=== PATIENT | female | born 1945 | race Caucasian/White ===

== ENCOUNTER → 2017-10-02 13:27 | Outpatient (CLI) | payer MEDICARE, OTHER, SELFPAY ==
--- NOTE | 2017-10-02 | DI.MRI.S_ITS ---
PROCEDURE: MR KNEE RT WO CON INDICATIONS: RIGHT KNEE PAIN TECHNIQUE: Noncontrast sagittal PD fast spin echo and T2 fast spin echo with fat saturation, sagittal 3-D FLASH with fat saturation; coronal T1 spin echo and PD fast spin echo with fat saturation, and axial PD fast spin echo with fat saturation through the knee. COMPARISON: None. FINDINGS: Image quality: Excellent. Menisci: The the medial meniscus demonstrates a vague linear oblique high T2 signal intensity traversing its posterior horn, demonstrate inferior to the service extension. Paravertebral cyst is present posteriorly. There is lateral extrusion of the lateral meniscus, which is severely fragmented involving its anterior and posterior horns. Cruciate ligaments: The anterior and posterior cruciate ligaments appear intact. Medial structures: The medial collateral ligament appears intact. The posterior oblique ligament, semimembranosus tendon insertions, oblique popliteal ligament, and meniscocapsular junction appear intact. Visualized portions of the pes anserinus tendons appear normal. No abnormal bursal fluid. Lateral structures: The lateral collateral ligament, long and short heads of the biceps femoris tendon appear intact. The popliteus tendon appears normal; the popliteofibular ligament appears intact. The posterosuperior and anteroinferior popliteomeniscal fascicles appear intact. The arcuate and fabellofibular ligaments appear intact, on either side of the lateral inferior geniculate artery. Iliotibial band appears normal. Anterior structures: The quadriceps and patellar tendons appear intact. Patellar alignment is normal. No femoral trochlear dysplasia or ventral trochlear prominence. No edema in the infrapatellar fat pad. Bones and cartilage: There is severe tricompartmental periarticular osteophyte formation. Multiple intraosseous ganglia within the posterior aspect of the medial tibial plateau are present, with mild surrounding degenerative marrow edema. Scattered small intraosseous ganglia within the subchondral aspects of the lateral femoral condyle and lateral tibial plateau are present. There is mild diffuse articular cartilage loss overlying the weightbearing aspects of the medial femoral condyle and medial tibial plateau. Severe diffuse articular cartilage loss overlying the weightbearing aspects of the lateral femoral condyle and lateral tibial plateau. Severe articular cartilage loss overlies the medial aspect of the medial patellar facet. Moderate articular cartilage loss overlies the lateral patellar facet. Joint space: There is a moderate knee joint effusion and a trace Guajardo's cyst. There are multiple intra-articular loose bodies present, largest of which is in the lateral aspect of the suprapatellar recess measuring 12 mm. Normal appearing synovial plicae are incidentally noted. IMPRESSION: 1. Medial and lateral meniscal tearing. 2. Severe osteoarthritis with tricompartmental articular cartilage loss. 3. Knee joint effusion and multiple intra-articular loose bodies. Dictated by: Patricia Bowman M.D. on 10/02/2017 at 13:30 Approved by: Patricia Bowman M.D. on 10/02/2017 at 13:33
== END ==
PROVIDERS: Visit Provider Orthopaedic Surgery
DX: S83.281A Other tear of lateral meniscus, current injury, right knee, initial encounter (principal); S83.241A Other tear of medial meniscus, current injury, right knee, initial encounter; M25.561 Pain in right knee; M17.11 Unilateral primary osteoarthritis, right knee; M25.461 Effusion, right knee
CPT/HCPCS: 73721

== ENCOUNTER 2017-11-14 06:05 | Day surgery (SDC) | payer MEDICARE, OTHER, SELFPAY ==
[2017-10-28 09:54] VITALS: BMI 37.0
[2017-10-28 11:02] VITALS: BMI 36.0
[2017-11-14] VITALS (15 sets, daily range): BP systolic 127–168; BP diastolic 76–96; PULSE 56–80; RESP 10–21; TEMP 36–36.9; O2SAT 93–98; BMI 35.5
--- NOTE | 2017-11-14 06:00 | DI.RAD.S_ITS ---
PROCEDURE: XR KNEE RT 1TO2V INDICATIONS: post operative total right knee TECHNIQUE: 2 view(s) of the knee acquired. COMPARISON: None. FINDINGS: Bones: Patient is status post knee joint arthroplasty. Hardware components are in expected positions. Visualized bony structures are intact. Soft tissues: Overlying postoperative changes are noted. IMPRESSION: Expected postoperative appearance Dictated by: Narendra Roberts M.D. on 11/14/2017 at 10:37 Approved by: Narendra Roberts M.D. on 11/14/2017 at 10:38
[2017-11-14] MEDS: LACTATED RINGERS 1,000 ML 42 ML IV ×2 (07:02→09:34)
[2017-11-14] MEDS: PREGABALIN 75 MG CAPSULE PO (07:04)
[2017-11-14] MEDS: ACETAMINOPHEN 325 MG TABLET 975 MG PO ×2 (07:04→14:30)
[2017-11-14] MEDS: MELOXICAM 7.5 MG TABLET 15 MG PO (07:04)
--- NOTE | 2017-11-14 07:48 | PM.PREOP ---
Pre-operative Note Interval Note Pre-op Check: Yes History & Physical Reviewed by Physician and Yes Exam Performed Changes: No
[2017-11-14] MEDS: MIDAZOLAM 2 MG/2 ML VIAL IV (07:55)
--- NOTE | 2017-11-14 07:59 | P.OP_ITS ---
Operative Date/Time/Diagnoses Date of procedure: 11/14/17 Time of procedure: 09:31 Pre-op diagnosis: Right knee osteoarthritis Post-op diagnosis: same Procedure & Clinicians Procedure: Right total knee arthroplasty Same procedure as scheduled: Yes Indications: The patient presents today for total knee arthroplasty after failure of conservative treatment. The nature of the procedure including the risks and benefits, alternatives, postoperative course and expected outcome were discussed and all questions answered. Consent was obtained. Operative site confirmed and marked. Surgeon: Manpreet Coles Airplane Pilot Photogrammetry: Vivek Miller Anesthesia Type: General and Local Operative Notes Findings: Severe osteoarthritis with valgus alignment. Closure Type: primary Specimen(s): none sent Implants & Drains: [employer] BCS: 6 femoral component, 5 tibial component, 9 mm BCS polyethylene tray and 32 mm x 7.5 mm round patella Applied: implant(s) Estimated Blood Loss (mL): 75 Blood products transfused: none Tourniquet time (min): 17 Procedure in detail: The patient was taken to the operative suite and placed under general anesthesia. The patient was given prophylactic antibiotics prior to surgery. The patient was also given tranexamic acid, 1 g, just prior to surgery for postoperative hemostasis. [The lateral knee was prepped and the joint injected with 20 mL of 1% Lidocaine with epinephrine. ] The knee was then prepped and draped in usual sterile fashion. The leg was exsanguinated with an Esmarch dressing and the tourniquet raised to [250] torr. A 15 cm anterior incision was made. Next a medial trivector arthrotomy was made. The extensor mechanism was marked to ensure accurate repair. Initial exposing dissection was carried out medially and laterally. The knee was then extended and the patellar thickness was measured and a cut made removing approximately 7 mm of bone[ with a goal of restoring normal patellar thickness] . The patella was then sized and drilled. Some excess lateral bone was excised and the patellofemoral ligament released. The tourniquet was then released. The knee was then flexed and the [employer] femoral guide was placed. The anterior pins were placed and the distal rotation holes drilled. The distal cutting guide was placed and the templated distal femoral cut was made. The templating cutting block was then placed and the anterior, posterior and chamfer cuts made. The [employer] tibial guide was placed and the alignment checked along the axis of the proximal tibial with a tanisha. The proximal tibial cut was then made with an oscillating saw. All meniscus and bony debris was then removed. Flexion extension gaps were checked. The knee was tight laterally, especially in extension, as expected. A lateral release was performed using a 15 blade with a pie crust technique. This better equalize the gaps with just slight increase in medial laxity likely due to stretching of the MCL. The soft tissues were then injected with a combination of [20 mL of half percent Marcaine with epinephrine and 20 mL of Exparel]. The trial components were then placed. The knee went into full extension and flexion beyond 120?. There was good medial- lateral balance throughout motion with just a slight increase in medial laxity compared to lateral. Patellar tracking was [excellent]. The trial components were removed and size is confirmed for the final implants. The knee was then exsanguinated with an Esmarch dressing and the tourniquet reapplied for cementing. The knee was cleansed with Pulsavac irrigation and dried. The final components were cemented in with high viscosity vacuum mixed bone cement with antibiotics. The knee was held in extension and the patellar clamp until the cement had adequately cured. The knee was then irrigated with dilute Betadine solution. The extensor mechanism was closed with 5 interrupted #1 Vicryl sutures in 90 degrees of flexion. [The joint was then injected with a combination of 1 g of tranexamic acid and 20 mL of quarter percent Marcaine with epinephrine.] The subcutaneous tissue was closed with 2-0 Vicryl. The skin was closed with [ feroz and surgical adhesive]. [ An Aquacell] dressing and Julio wrap were then applied. Condition: stable Disposition: PACU Plan for aftercare: [facility] postoperative protocol for total knee arthroplasty.
[2017-11-14] MEDS: CEFAZOLIN 2 GM/100 ML FROZ.PIGGY IV ×2 (08:05→16:55)
[2017-11-14] MEDS: LIDOCAINE 1% W/EPI INJ 20 ML INJ (08:20)
--- NOTE | 2017-11-14 08:34 | SUR.OPER ---
Supine on padded OR bed. Pillow under head, arms secured on padded armboards <90 degree abduction. Safety belt across torso. Non-operative leg secured with tape over blanket over lower leg. Operative leg secured in [place] positioner. Foam padded brace at thigh of operative leg.
[2017-11-14] MEDS: BUPIVACAINE 0.5% W/ EPI (PF) 20 ML, BUPIVACAINE LIPOSOME 266 MG, SODIUM CHLORIDE 0.9% 8... INJ (08:45)
[2017-11-14] MEDS: BUPIVACAINE 0.5% W/ EPI (PF) 10 ML, TRANEXAMIC ACID 1,000 MG, SODIUM CHLORIDE 0.9% 20 ML INJ (08:46)
[2017-11-14] MEDS: POVIDONE-IODINE 15 ML, SODIUM CHLORIDE 0.9% 250 ML TOP (08:48)
[2017-11-14] MEDS: fentaNYL 100 MCG/2 ML INJ 50 MCG IV ×3 (09:50→10:10)
[2017-11-14] MEDS: ONDANSETRON 4 MG/2 ML INJ IV (10:53)
[2017-11-14] MEDS: LACTATED RINGERS 1,000 ML 125 ML IV (11:21)
[2017-11-14] MEDS: HYDROMORPHONE 0.5 MG INJ IV (11:22)
--- NOTE | 2017-11-14 11:27 | PC.NURSE ---
Addendum entered by Angeline Cabral R.N. 11/14/17 14:17: PAIN/ - states earlier 5mg oxycodone and the 0.5mg dilaudid provided good relief r knee pain, pt placed on bedpan and voided 550ml clear urine. Original Note: Addendum entered by Angeline Cabral R.N. 11/14/17 13:45: PAIN - pt asking medication, pain 4 on scale 0/10, some incr restlessness, ice packs provided, given 0.5mg iv dilaudid and after pt darby full liq, crackers, given 5mg oxycodone. Original Note: POST OP ARRIVAL 1030: Awake,talkative,sipping apple juice, denies nausea, states r knee pain 6 on scale 0/10 and moderately restless with discomfort, bert wrap over aquacell dsg cdi, ice pack placed behind and over r knee, ra 94%, p68, scds applied, +cms feet and wiggles toes, ankle pumps, req pain medication, given 0.5mg iv dilaudid now, call light available, oriented to room.
[2017-11-14] MEDS: OXYCODONE IR 5 MG TABLET PO ×2 (12:56→16:41)
[2017-11-14] MEDS: HYDROMORPHONE 1 MG INJ 0.5 MG IV (12:57)
--- NOTE | 2017-11-14 14:15 | PT.IIE ---
Current Diagnoses Unilateral primary osteoarthritis, right knee (11/14/17) Surgery Performed Operation Date: 11/14/17 07:45 Actual Procedures p Total Knee Arthroplasty(Right) - Manpreet Coles MD Surgical History (Last Updated 10/28/17 @ 11:48 by Ivone Domínguez, RN) History of bunionectomy (Acute) History of tonsillectomy (Acute) History of vaginal surgery (Acute) S/P breast biopsy, bilateral (Acute) Medical History (Last Updated 10/28/17 @ 11:48 by Ivone Domínguez, RN) Bladder stone (Acute) Borderline hypertension (Acute) Concussion (Acute 09/12/17) Degenerative arthritis of right knee (Acute) Low back pain (Acute) Neck pain (Acute 09/12/17) Plantar fasciitis (Acute) Primary osteoarthritis of right knee (Acute) Surgery, elective (Acute) Physical Therapy Inpatient Evaluation/Re-Eval M1 PT/OT-IP Prior Functional Status Start: 11/14/17 16:57 Freq: NEEDED Status: Active Protocol: Document 11/14/17 14:15 AB (Rec: 11/14/17 17:11 AB [id number]) Medical Review Prior Functional Status Medical History Reviewed Yes Communication able to make needs known Mobility and Gait stated that she is independent with all mobilities and ambulation without AD Social History Household Members spouse Living Arrangements House Number of Floors (Floors) One Floor Number of Stairs To Enter/Railing? has 3 steps to enter with L rail ascending Home Environment Walk in Shower Home Equipment Front Wheel Walker Raised Toilet Seat w/Armrests Shower Seat with Backrest Grab Bars In Shower Additional Social History Comment pt has a hurrycane M2 PT-IP Current Condition Start: 11/14/17 16:57 Freq: NEEDED Status: Active Protocol: Document 11/14/17 14:15 AB (Rec: 11/14/17 17:11 AB [id number]) Physical Therapy Current Condition Current Condition Evaluation Date 11/14/17 Treatment Diagnosis s/p R TKA Onset Date 11/14/17 Weight Bearing Status Weight Bearing Status Weight Bear as Tolerated M3 PT-IP Subjective Start: 11/14/17 16:57 Freq: NEEDED Status: Active Protocol: Document 11/14/17 14:15 AB (Rec: 11/14/17 17:11 AB [id number]) Subjective Physical Therapy Visit Type Type Initial Evaluation Visit Start Time 14:15 Visit Stop Time 15:47 Total Visit Minutes 92 Number of COMPUTER GRAPHICS ILLUSTRATOR Visits 0 Physical Therapy Visit Comments Patient Comments i want to go home today Therapy Pain Assessment Pain When Pain Assessed At Rest Pain Present Pain Present Pain Reported Location Right Knee Intensity 1 Scale Used Numeric (1 - 10) Pain Management Techniques Timing of Activity with Medications M4 PT-IP Mobility and Gait Start: 11/14/17 16:57 Freq: NEEDED Status: Active Protocol: Document 11/14/17 14:15 AB (Rec: 11/14/17 17:11 AB [id number]) PT-Bed Mobility Assessment Supine to Sit Supine to Sit Standby Assistance Sit to Supine Sit to Supine Standby Assistance Scooting Scooting to Edge of Bed Standby Assistance PT-Transfer Assessment Sit to and From Stand Sit to and from Stand Contact Guard Assistance 1 Person Assistance Use of Upper Extremities Equipment Transfer Assistive Device Gait Belt Front Wheeled Walker Orthotic/Prosthetic Devices or Brace: No Transfers Transfer Destination Chair Transfer Technique Stand Step Pivot Transfer Ability Level of Assist Contact Guard Assistance 1 Person Assistance Use of Upper Extremities Comments Mobility Comments caregiver training conducted. spouse educated on how to use safety belt on and how to assist pt. spouse was able to assist pt with bed mobility, transfers and ambulation. Gait Assessment Gait Gait Assistance Required: Contact Guard Assist Distance (Feet) (feet) 100 Able to Maintain Weight Bearing Status Yes During Gait Assistive Devices Assistive Device Gait Belt Front Wheeled Walker Orthotic/Prosthetic Devices or Brace: No Gait Deviations General Gait Pattern Antalgic Decreased Stride Length Decreased Feet Clearance Narrow Based Gait Factors Limiting Gait Function Factors Limiting Gait Function Decreased Activity Tolerance Decreased Strength Limited Range of Motion Pain Poor Balance Poor Safety Awareness Comments Gait Comments pt with c/o dizziness and nausea with upright activities . BP checked: 145/91 BP after tx session: 168/99 Nurse informed Stair Climbing Assessment Evaluation Level of Assist On Stairs Contact Guard Assistance 1 Person Assistance Devices Stair Climbing Assistive Devices Left Railing Technique/Endurance Stair Climbing Direction Ascend and Descend Stair Climbing Technique Step to Step Number of Steps Climbed 3 Query Text: Stair Climbing Set # Repetitions (reps) 2 Comments Stair Climbing Comments pt requires cues for proper techniques. spouse was able to provide appropriate cues to pt. PT-Balance Assessment Sitting Balance and Reactions Static Sitting Balance Ability Good Dynamic Sitting Balance Ability Good Standing Balance and Reactions Static Standing Balance Ability Fair Dynamic Standing Balance Ability Fair Device Used FWW M5 PT-IP Objective Assessments Start: 11/14/17 16:57 Freq: NEEDED Status: Active Protocol: Document 11/14/17 14:15 AB (Rec: 11/14/17 17:11 AB [id number]) Orientation Orientation/Cognition Level of Alertness Alert Orientation Name Age Birthday Month Date Year Day of Week Place Situation Safety Awareness Decreased Safety Awareness Comments pt alert but with some difficulty with instruction and stated that it is because of the pain meds. Gross Range of Motion Lower Extremity ROM Assessment Right Impaired Strength Lower Extremity Strength Assessment Right Impaired Knee 4-/5 M6 PT-IP Treatment Start: 11/14/17 16:57 Freq: NEEDED Status: Active Protocol: Document 11/14/17 14:15 AB (Rec: 11/14/17 17:11 AB [id number]) Physical Therapy Treatment Education Education Provided Precautions Weight Bearing Status Post-Op Packet Safety M7 PT-IP Assessment and Plan Start: 11/14/17 16:57 Freq: NEEDED Status: Active Protocol: Document 11/14/17 14:15 AB (Rec: 11/14/17 17:11 AB [id number]) PT Summary Assessment and Plan Potential Rehabilitation Potential Good Status of Condition at Evaluation Evolving Summary Impairments Pain ROM Strength Balance Coordination Sensation Tone Cognition Bed Mobility Transfers Gait Activity Tolerance Assessment Summary pt doing well with mobility and spouse was able to assist pt safety. pt with c/o dizziness and nausea with activity limiting movement but was able to complete tasks with spouse assisting her. pt may go home with spouse to assist and outpt PT. Goals Bed Mobility Goal Independent Transfer Goal Independent Gait Goal Independent Gait Distance 200 Other Goals up/down 3 steps with L rail ascending SBA Days to Meet Goals 2 Frequency of Treatment Frequency Of Treatment Twice a Day Treatment Plan Physical Therapy Treatment Plan Bed Mobility Training Transfer Training Gait Training Therapeutic Exercise Balance Retraining Post Op Education Discharge Planning Hot or Cold Pack Neuromuscular Re-ed Coordination Retraining Manual Therapy Recommendations To Nursing Amount of Assist Needed 1 Person Assist Discharge Recommendations PT Discharge Recommendations Home with Assistance Outpatient PT
--- NOTE | 2017-11-14 16:21 | CM.IDA ---
Discharge Planning/Care Management CM Discharge Assessment Start: 11/14/17 16:17 Freq: Status: Active Protocol: Document 11/14/17 16:18 EBEN (Rec: 11/14/17 16:21 EBEN [id number]) Discharge Planning Assessment Assigned Agriculture Manager OVI Beatty DPOA/Assigned Designee Name Jose Salamanca, spouse Contact Information [phone] Advance Directives? No Advance Directives on File No History Provided By Patient Prior Living Arrangements House Household Members spouse Type of transporation used prior to Drives own vehicle admit Independent with ADL's Yes Is patient alert and oriented? Yes Comment All needed are in place per pt . Barriers to Discharge No Comment Pt is a very pleasant woman who expects to DC home w/ assist from her spouse. Met w/ pt to explain role. Pt appreciative of the visit and expects no barriers to DC. PT pending. Discharge Plan Home Transportation Arrangement spouse Referrals Initiated None needed Whiteboard Updated in Patient Room with Yes name and ext. # of Agriculture Manager Review Status In Process
[2017-11-14] MEDS: ONDANSETRON 4 MG ODT PO (16:41)
--- NOTE | 2017-11-14 16:55 | PC.NURSE ---
1655 pt alert and requesting DC. Pt has worked with physical therapy since post op. Pt and spouse states feel comfortable with Post op precautions and activity at home. Per Emani from physical therapy pt is safe to DC home with spouse. Pt denies any nausea. states was shift path and has medications at home. Call by this RN to to relay the same and MD states will put in order for DC.
--- NOTE | 2017-11-14 18:22 | PC.NURSE ---
DISCHARGE Received pt in bed after PT eval. A&Ox3, pt very eager to be discharged home today. c/o minimal pain to R knee at rest, pain up to 4/10 with activity. aqaucel dressing with BALAJI wrap CDI. pt denies any numbness/tingling. c/o slight nausea, medicated with PRN zofran prior to dinner, tolerated regular diet without issues. d/c instructions reviewed with pt and spouse by vani SEGUNDO. pt d/c of funit at approximately 1820 via wheelchair with REMELT OPERATOR escort.
== END 2017-11-14 18:20 | disposition home or self-care (01) ==
LOC: AC 16:57 → OR 11-15 07:24
PROVIDERS: Visit Provider Orthopaedic Surgery
PROC: 0SRC0JZ Replacement of Right Knee Joint with Synthetic Substitute, Open Approach (ICD-10-PCS; CPT 27447; principal; 2017-11-14 07:45)
DX: M17.11 Unilateral primary osteoarthritis, right knee (principal)
CPT/HCPCS: 27447; 73560; 97116; 97162; 97530; C1776; C9290; J0690; J1100; J1170; J2250; J2405; J2704; J3010

== ENCOUNTER 2022-05-30 06:23 | Day surgery (SDC) | payer MEDICARE, SELFPAY ==
[2017-11-14 11:05] VITALS: BMI 35.5
[2022-05-15 12:31] VITALS: BMI 36.3
[2022-05-30] VITALS (16 sets, daily range): BP systolic 132–175; BP diastolic 66–96; PULSE 63–86; RESP 11–20; TEMP 35.7–36.8; O2SAT 93–98; BMI 36.3
--- NOTE | 2022-05-30 06:00 | DI.RAD.S_ITS ---
PROCEDURE: XR KNEE LT 1TO2V INDICATIONS: prosthesis placement TECHNIQUE: 2 views of the knee were acquired. COMPARISON: [facility], CR, XR KNEE 4+ VIEWS LEFT, 04/02/2022, 14:58. [facility], CR, XR KNEE RT 1TO2V, 11/14/2017, 9:52. FINDINGS: Bones: No fractures or dislocations. No suspicious bony lesions. Soft tissues: No joint effusion. No suspicious soft tissue calcifications. IMPRESSION: Expected postoperative appearance of the left knee arthroplasty. Dictated by: Singh Sorto M.D. on 05/30/2022 at 10:04 Approved by: Singh Sorto M.D. on 05/30/2022 at 10:05
[2022-05-30] MEDS: PREGABALIN 75 MG CAPSULE PO (07:00)
[2022-05-30] MEDS: ACETAMINOPHEN 325 MG TABLET 975 MG PO (07:00)
[2022-05-30] MEDS: LACTATED RINGERS 1,000 ML 42 ML IV ×2 (07:01→08:47)
[2022-05-30 07:39] LABS: COVID19 -Nasal RAPID Negative (Negative)
--- NOTE | 2022-05-30 07:47 | PM.PREOP ---
Pre-operative Note COVID-19 COVID-19 status: Negative Result date/Date tested (Pos, Neg/Pending): 05/30/22 Interval Note History & Physical reviewed/Exam performed by Physician: Yes Changes to H&P: No
[2022-05-30] MEDS: CEFAZOLIN 2 GM/100 ML PREMIX 100 ML IV ×2 (08:00→18:25)
[2022-05-30] MEDS: TRANEXAMIC ACID 1,000 MG VIAL 1000 MG INJ ×2 (08:00→09:00)
--- NOTE | 2022-05-30 08:16 | SUR.OPER ---
Supine on padded OR bed. Pillow under head, arms secured on padded armboards <90 degree abduction. Safety belt across torso. Non-operative leg secured with tape over blanket over lower leg. Operative leg secured in [place] positioner. Foam padded brace at thigh of operative leg.
[2022-05-30] MEDS: MORPHINE 4 MG/ML INJ INJ (08:21)
[2022-05-30] MEDS: BUPIVACAINE LIPOSOME 266 MG/20 ML VIAL INJ (08:21)
[2022-05-30] MEDS: BUPIVACAINE 0.25% (PF) 60 ML, EPINEPHrine 0.3 MG INJ (08:22)
--- NOTE | 2022-05-30 09:24 | P.OP_ITS ---
Operative Date/Time/Diagnoses Date of procedure: 05/30/22 Time of procedure: 09:24 Pre-op diagnosis: Left knee osteoarthritis Post-op diagnosis: same Procedure & Clinicians Procedure: Left total knee replacement Same procedure as scheduled: Yes Indications: The patient has had progressively worsening left knee pain with radiographic changes consistent with arthritis. Non-operative management has failed and the patient has requested total knee replacement. The risks, benefits and alternatives to surgery were discussed with the patient prior to proceeding. Risks discussed included, but were not limited to, failure to relieve pain, stiffness, infection, nerve damage, deep venous thrombosis, pulmonary embolism, stroke, coma, heart attack, permanent paralysis and , as well as the potential need for eventual revision of the prosthetic. Surgeon: Jean Carlos Hickey Paramedic: Sheyla Pineda Click Yes if Unassisted: No Anesthesia Type: General and Local Operative Notes Findings: Severe osteoarthritis predominantly in the lateral compartment with significant inflammatory findings in the synovium. Closure Type: primary Specimen(s): none sent Prosthetic devices, grafts, tissues, transplants, or devices: Implants used in this procedure were manufactured by the [employer] and [employer] and included the BCS II Journey total knee replacement with a size 6 cobalt chromium femur, a size 5 non porous tibial base plate, a 10 mm cross- linked polyethylene insert, and 32 mm oval Kiara II patella. Applied: implant(s) Estimated Blood Loss (mL): 25 Blood products transfused: none Tourniquet time (min): 46 Procedure in detail: The patient was seen in the pre-operative area, where the left knee was identified as the operative site and this was marked with my initials. The patient received pre-operative antibiotics, and was taken to the operating room and placed on the operative table in the supine position. After satisfactory anesthesia, a contemporary or modern dancer out was performed. The left leg was encircled with a tourniquet about the proximal thigh, and the leg was prepared from the toes to the tourniquet with ChloroPrep in the usual fashion and draped through sterile drapes. The leg was elevated and exsanguinated with Eschmark bandage and the tourniquet inflated to 250 mmHg pressure. The knee was approached through an approximately 18 cm incision centered over the patella and carried into the knee through a medial parapatellar arthrotomy. The anterior osteophytes and soft tissues were removed. The rotational landmarks of [place]'s line and the transepicondylar axis were marked on the femur with electrocautery, and intramedullary guide holes for the femur and tibia were created. The distal femoral cut was made in 6 degrees of valgus using the intramedullary guide at the primary cut setting. The proximal tibial cut was then made using the intramedullary guide, taking 7 mm of bone off the less involved medial side. The extension gap was checked and the rotation of the femoral component confirmed with the gap balancing blocks. The anterior, posterior and chamfer cuts were then made. The posterior osteophytes and soft tissues were then removed. The posterior capsule was injected with part of a mixture of 60 ml 0.25% Marcaine mixed with 20 ml Exparel and 4 mg of morphine for post-operative pain control. The remainder of this mixture was injected into the capsule and subcutaneous tissues during cement curing. The tibia was prepared with the rotation set by an extra medullary guide. Trial tibial and femoral components were then placed and the intercondylar notch cut through the femoral trial. Range of motion was 0-135 degrees, with good stability throughout the range. The patella was then cut to accommodate the patellar prosthetic. There was no need for a lateral release. The trials were then removed, and the femoral hole plugged with a bone plug. The bone was prepared with pulsatile lavage, and dried with a sponge. Cement was applied and the final prosthetics placed. Excess cement was removed during and after cement curing. After confirming there was no extruded cement posteriorly, the final tibial insert was placed. The knee was copiously irrigated and the tourniquet deflated. Hemostasis was obtained. The capsule was closed with interrupted # 2 polyester sutures. The subcutaneous layer was closed with 3-0 Vicryl, and the skin with a running 3-0 V-Lock suture and Dermabond. An Aquacel Ag dressing was applied and the patient was taken to recovery having tolerated the procedure well. A skilled operating room surgical technologist was necessary during this procedure to provide positioning, exposure, and retraction to protect vital structures. Without the assistance of Ms. Pineda, the procedure could not be completed in a safe, expedient fashion. Complications: none Post-operative Condition: stable Disposition: PACU Plan for aftercare: The patient will be maintained on a standard total knee replacement protocol with weight bearing as tolerated. The patient will receive aspirin and sequential compression devices for DVT prophylaxis. The patient will be discharged home when safe for the home environment.
[2022-05-30] MEDS: OXYCODONE IR 5 MG TABLET PO (09:59)
[2022-05-30] MEDS: ONDANSETRON 4 MG/2 ML INJ IV (09:59)
[2022-05-30] MEDS: LORazepam 2 MG/ML INJ 0.25 MG IV (10:09)
--- NOTE | 2022-05-30 11:34 | SUR.PHASEII ---
11:25, attempted to get patient up sitting on edge of ped. Dizzy, groggy, too much pain to move around. Pt requested to change the plan pf DC home now to going upstairs and wait a while to go home. Dr. Hickey updated by Charge Nurse and agreed to write orders for transfer. Pt not rating pain appropriately bc so groggy. Repositioned in bed, sipping water, Left knee elevated, ice pack applied. updated with new plan.
[2022-05-30] MEDS: OXYCODONE/ACETAMINOPHEN 5/325 TABLET 1 TAB PO (11:39)
[2022-05-30] MEDS: IBUPROFEN 600 MG TABLET PO (11:41)
[2022-05-30] MEDS: OXYCODONE IR 10 MG TABLET PO ×2 (12:57→23:13)
[2022-05-30] MEDS: IBUPROFEN 400 MG TABLET PO ×3 (12:58→21:34)
--- NOTE | 2022-05-30 14:00 | PC.NURSE ---
Pt to room 214 via bed from PACU. Pt is sleepy but oriented x 3. Pt oriented to room, call light, tv controls, and bed controls. Pt able to wiggle toes and move feet-denies numbness. SCD's on and running, IV infusing. Pt denies needs at this time and agrees to call for assistance as needed. Bed alarm is on for safety.
[2022-05-30] MEDS: ACETAMINOPHEN 325 MG TABLET 650 MG PO (18:23)
[2022-05-30] MEDS: LACTATED RINGERS 1,000 ML 100 ML IV (18:24)
[2022-05-30] MEDS: DOCUSATE 100 MG CAPSULE PO (21:34)
[2022-05-30] MEDS: ASPIRIN EC 81 MG TABLET PO (21:34)
[2022-05-31] MEDS: IBUPROFEN 400 MG TABLET PO ×4 (00:42→13:52)
[2022-05-31] MEDS: ACETAMINOPHEN 325 MG TABLET 650 MG PO ×3 (00:43→13:52)
[2022-05-31] MEDS: CEFAZOLIN 2 GM/100 ML PREMIX 100 ML IV (03:26)
[2022-05-31 04:00] VITALS: BP 129/76; PULSE 69; RESP 17; TEMP 36; O2SAT 95
[2022-05-31 06:15] LABS: Hematocrit 39.2 % (36-46)
--- NOTE | 2022-05-31 06:34 | PM.DS.1 ---
History of Present Illness History of Present Illness Date Patient Seen: 05/31/22 Time Patient Seen: 06:34 Chief complaint: TKA Left *OPB* Narrative: Operative Date/Time/Diagnoses Date of procedure: 05/30/22 Time of procedure: 09:24 Pre-op diagnosis: Left knee osteoarthritis Post-op diagnosis: same Procedure & Clinicians Procedure: Left total knee replacement Same procedure as scheduled: Yes Indications: The patient has had progressively worsening left knee pain with radiographic changes consistent with arthritis. Non-operative management has failed and the patient has requested total knee replacement. The risks, benefits and alternatives to surgery were discussed with the patient prior to proceeding. Risks discussed included, but were not limited to, failure to relieve pain, stiffness, infection, nerve damage, deep venous thrombosis, pulmonary embolism, stroke, coma, heart attack, permanent paralysis and , as well as the potential need for eventual revision of the prosthetic. Surgeon: Jean Carlos Hickey Systems Development Consultant: Sheyla Pineda Click Yes if Unassisted: No Anesthesia Type: General and Local Operative Notes Findings: Severe osteoarthritis predominantly in the lateral compartment with significant inflammatory findings in the synovium. Closure Type: primary Specimen(s): none sent Prosthetic devices, grafts, tissues, transplants, or devices: Implants used in this procedure were manufactured by the [employer] and included the BCS II Journey total knee replacement with a size 6 cobalt chromium femur, a size 5 non porous tibial base plate, a 10 mm cross-linked polyethylene insert, and 32 mm oval Kiara II patella. Applied: implant(s) Estimated Blood Loss (mL): 25 Blood products transfused: none Tourniquet time (min): 46 Discharge Providers Provider Discharge Date: 05/31/22 Consults: 05/30/22 12:19 Consult to Discharge Planning Routine Comment: Consult to Physical Therapy Evaluate & Treat Comment: Physician Instructions: postop TKA protocol Discharge provider: Asia Meredith PA-C Summary Hospital Course Discharge Diagnosis: Left knee osteoarthritis, s/p left total knee arthroplasty Hospital Course: Ms Salamanca's hospital course was remarkable for poor pain control. On POD# 1 she c/o being up all night and very much wanted to go home so she could get some rest. She had been OOB several times to the bathroom and was voiding without difficulty. She had not yet worked w/ PT. She denied N/V. Exam Vital Signs (past 8 hours): - 05/30/22 23:56 05/31/22 04:00 Temperature 97.4 F L 96.8 F L Pulse Rate 68 69 Respiratory Rate 18 17 Blood Pressure 135/77 129/76 Pulse Oximetry 93 95 Oxygen Flow Rate 0 0 Oxygen Delivery Method Room Air Oxygen Flow Rate 0 Narrative Exam Narrative: 5/5 strength in hip flexors, DF, PF, EHL; 4/5 quadriceps, hamstrings on left. Sensation to light touch intact throughout LLE. Calves soft, compressible, nontender and without palpable cords or masses. Aquacel dressing CDI. Objective Labs 05/31/22 05:45 Labs: Laboratory Results - last 24 hr 05/30/22 05/31/22 07:00 05:45 Hgb 13.0 Hct 39.2 SARS-CoV-2 (PCR) Negative [facility] Medical History (Updated 05/15/22 @ 13:30 by Camelia Beltre RN) Bladder stone Borderline hypertension Concussion (09/12/17) COVID-19 virus infection (02/2020) Degenerative arthritis of right knee Low back pain Neck pain (09/12/17) Plantar fasciitis Primary osteoarthritis of right knee Surgery, elective Surgical History (Updated 05/15/22 @ 12:32 by Camelia Beltre, SANYA) History of bunionectomy History of tonsillectomy History of total right knee replacement (11/14/17) History of vaginal surgery S/P breast biopsy, bilateral Social History household members: spouse Smoking Status: Never smoker alcohol intake: former Discharge Assessment & Plan Assessment and Plan Assessment: Left knee osteoarthritis, s/p left total knee arthroplasty Plan of Treatment: Home after PT if PT agrees. Multimodal pain control, ASA BID x 6 weeks for VTE prophylaxis, outpt PT, f/u in office in 2 weeks. Discharge Plan Discharge Plan Patient Disposition: Home Discharge orders & Medications Discharge Orders: Discharge (Order); Ordered 05/31/22 Ordered By: Asia Meredith Prescriptions: New acetaminophen 325 mg Tablet 650 mg PO Q6H PRN (Reason: Fever/Mild Pain (1-3)) Qty: 500 0RF aspirin 81 mg Tablet,Delayed Release (Dr/Ec) 81 mg PO BID Qty: 84 0RF ibuprofen 600 mg Tablet 600 mg PO Q6HR PRN (Reason: Fever/Mild Pain (1-3)) Qty: 500 0RF oxycodone 5 mg Tablet 5 mg PO Q4HR PRN (Reason: Pain, Moderate (4-6)) Qty: 40 0RF Continued ascorbic acid (vitamin C) [Vitamin C] 500 mg Capsule, Extended Release 500 mg PO DAILY potassium citrate 5 mEq (540 mg) Tablet Extended Release 5 meq PO DAILY cholecalciferol (vitamin D3) [Vitamin D3] 2,000 unit Capsule 5,000 unit PO DAILY magnesium 200 mg Tablet 400 mg PO DAILY calcium carbonate-vit D3-min [Calcium 600 + Minerals] 600 mg calcium- 400 unit Tablet 450 mg PO DAILY Follow up/Referrals: Jean Carlos Hickey MD [Physician] - As previously scheduled (Follow up w/ Nadia Jonas PA-C, on 06/15/2022@ 11:40 am at [facility] in [place].) Diet/Activity/Treatments Diet: Diet as Tolerated and Regular Activity: Walk frequently! You may bear weight as tolerated on your left leg. Cold/Heat Therapy: Ice to knee as needed for pain. Skin/Wound/Dressing Care Report to your healthcare provider any signs of infection, such as:: chills, fever, night sweats, unusual drainage and unusual redness Dressing: May remove Julio wrap and shower on 06/02/2022. Leave Aquacel dressing in place until follow up in office. Call the office if the dressing becomes saturated inside. No bathing or otherwise soaking incision. Visit Report/Discharge Packet Instructions: DI for Knee Replacement Stand Alone Forms: Patient Portal/API, Surgery Discharge Discharge Data Attending Provider: Jean Carlos Hickey
[2022-05-31 08:14] VITALS: BP 131/74; PULSE 68; RESP 17; TEMP 36.1; O2SAT 95
[2022-05-31] MEDS: CALCIUM CARBONATE 500 MG TAB 450 MG PO (08:32)
[2022-05-31] MEDS: ASPIRIN EC 81 MG TABLET PO (08:32)
[2022-05-31] MEDS: OXYCODONE IR 10 MG TABLET PO (08:33)
[2022-05-31] MEDS: CHOLECALCIFEROL (VITAMIN D3) 5,000 UNIT TABLET 5000 UNIT PO (08:33)
[2022-05-31] MEDS: MAGNESIUM OXIDE 400 MG TABLET PO (08:33)
[2022-05-31] MEDS: ASCORBIC ACID 500 MG TABLET PO (08:36)
[2022-05-31] MEDS: HYDROMORPHONE 2 MG TABLET PO ×2 (11:06→14:16)
--- NOTE | 2022-05-31 11:09 | CM.DANOTE ---
Discharge Planning/Care Management CM Discharge Assessment Start: 05/31/22 11:07 Freq: Status: Active Protocol: Document 05/31/22 11:07 EBEN (Rec: 05/31/22 11:09 EBEN [id number]) Discharge Planning Assessment Assigned [employer] DPOA/Assigned Designee Name Jose Salamanca, spouse Contact Information [phone] Advance Directives? No Advance Directives on File No History Provided By Patient,Medical Record Prior Living Arrangements House Household Members spouse Type of transporation used prior to Drives own vehicle admit Independent with ADL's Yes Is patient alert and oriented? Yes Comment 76 yo female, resident of [place]. Left knee osteoarthritis, s/p left total knee arthroplasty by Dr Hickey . Patient planned to return home w/spouse to assist and therapy cleared patient for this plan. outpatient PT. No needs from this CM team identified Comment Pt is a very pleasant woman who expects to DC home w/ assist from her spouse. Met w/ pt to explain role. Pt appreciative of the visit and expects no barriers to DC. Discharge Plan Home Transportation Arrangement spouse Referrals Initiated None needed
--- NOTE | 2022-05-31 11:10 | PT.IIE ---
Current Diagnoses Unilateral primary osteoarthritis, left knee (05/30/22) Surgery Performed Operation Date: 05/30/22 07:45 Actual Procedures p Total Knee Arthroplasty(Left) - Jean Carlos Hickey MD Surgical History (Last Updated 05/15/22 @ 12:32 by Camelia Beltre, RN) History of bunionectomy History of tonsillectomy History of total right knee replacement (11/14/17) History of vaginal surgery S/P breast biopsy, bilateral Medical History (Last Updated 05/15/22 @ 13:30 by Camelia Beltre RN) Bladder stone Borderline hypertension Concussion (09/12/17) COVID-19 virus infection (02/2020) Degenerative arthritis of right knee Low back pain Neck pain (09/12/17) Plantar fasciitis Primary osteoarthritis of right knee Surgery, elective Physical Therapy Inpatient Evaluation/Re-Eval M1 PT/OT-IP Prior Functional Status Start: 05/31/22 12:37 Freq: NEEDED Status: Active Protocol: Document 05/31/22 11:10 DLM (Rec: 05/31/22 12:51 DL [id number]) Medical Review Prior Functional Status Medical History Reviewed Yes Diet/Fluid Consistency Regular Communication WNL Mobility and Gait Independent Activities of Daily Living and IADL's Independent Social History Household Members spouse Living Arrangements House Number of Floors (Floors) One Floor Number of Stairs To Enter/Railing? 2 steps to enter with rail Home Equipment Front Wheel Walker Additional Social History Comment she underwent right TKA 4 years ago M2 PT-IP Current Condition Start: 05/31/22 12:37 Freq: NEEDED Status: Active Protocol: Document 05/31/22 11:10 DLM (Rec: 05/31/22 12:51 DL [id number]) Physical Therapy Current Condition Current Condition Evaluation Date 05/31/22 Treatment Diagnosis left TKA, impaired gait and mobility, knee pain Onset Date 05/30/22 M3 PT-IP Subjective Start: 05/31/22 12:37 Freq: NEEDED Status: Active Protocol: Document 05/31/22 11:10 DLM (Rec: 05/31/22 12:51 DLM [id number]) Subjective Physical Therapy Visit Type Type Initial Evaluation Visit Start Time 10:45 Visit Stop Time 11:10 Total Visit Minutes 25 Number of MANAGER CHILD Visits 0 Physical Therapy Visit Comments Patient Comments She reports she is having a lot of pain in her knee and it gets more severe when she tried to get up with nursing. She reports she did not have this level of pain after her right TKA. She does not feel she can get up at this time due to the pain. Patient Goals Discharge home Therapy Pain Assessment Pain When Pain Assessed During Exercise Pain Present Pain Present Pain Reported Location Left Knee Intensity 8 Scale Used Numeric (0 - 10) Description Aching,Tender,With Movement Pain Behaviors Facial Grimacing,Wincing Pain Management Techniques Apply Cold,Re-positioning, Timing of Activity with Medications M4 PT-IP Mobility and Gait Start: 05/31/22 12:37 Freq: NEEDED Status: Active Protocol: Document 05/31/22 11:10 DLM (Rec: 05/31/22 12:51 DLM [id number]) PT-Transfer Assessment Comments Mobility Comments pt declined mobility due to high level of pain in her knee , discussed with her nurse, left pt in care of her nurse to manage the pain M5 PT-IP Objective Assessments Start: 05/31/22 12:37 Freq: NEEDED Status: Active Protocol: Document 05/31/22 11:10 DLM (Rec: 05/31/22 12:51 DLM [id number]) Orientation Orientation/Cognition Level of Alertness Alert Orientation Name,Age,Birthday,Month,Date, Year,Day of Week,Place, Situation Language Function Ability No Deficits Noted Safety Awareness Understands Safety Issues Memory Description No Deficits Noted Gross Range of Motion Upper Extremity ROM Assessment Within Functional Limits Lower Extremity ROM Assessment Left Impaired Strength Upper Extremity Strength Assessment Within Functional Limits Lower Extremity Strength Assessment Left Impaired Hip can not lift off of bed with severe knee pain Knee pain with quad set, can not do short arc quad due to pain Ankle moving actively but reports calf soreness Coordination Assessment Gross Coordination Gross Coordination WNL Sensation Assessment Sensation Gross Sensation WNL Comments Sensation Comments no numbness reported in left LE post-op Muscle Tone Muscle Tone WNL Yes M6 PT-IP Treatment Start: 05/31/22 12:37 Freq: NEEDED Status: Active Protocol: Document 05/31/22 11:10 DLM (Rec: 05/31/22 12:51 DLM [id number]) Physical Therapy Treatment Exercises Exercises Ankle Pumps,Quad Sets,Heel Slides,Short Arc Quads,Passive Knee Extension Hang Education Education Provided Weight Bearing Status,Post-Op Packet,Safety Other Treatments Other Treatment Performed Her is present, attempted post-op exercises but she is having too much pain to do even a few reps of each exercise. Answered pt's questions. M7 PT-IP Assessment and Plan Start: 05/31/22 12:37 Freq: NEEDED Status: Active Protocol: Document 05/31/22 11:10 DLM (Rec: 05/31/22 12:51 DLM [id number]) PT Summary Assessment and Plan Potential Rehabilitation Potential Good Status of Condition at Evaluation Unstable Summary Impairments Pain,ROM,Strength,Balance,Bed Mobility,Transfers,Gait, Activity Tolerance Assessment Summary Gretchen is alert and resting in bed. She reports having severe pain in her knee since yesterday. It has been very painful for her to get up with nursing. She attempted her TKA exercises this visit but could not complete even a few reps of each due to her knee pain. Pt feels her pain is too severe to do mobility/gait. Discussed pain issues with her nurse. Will attempt mobility again later today as her pain improves. Will continue to assess for discharge planning as her pain improves. She is not safe for discharge yet due to pain management issues that prevent her participation in therapy. Goals Bed Mobility Goal Independent Transfer Goal Independent,Front Wheeled Walker Gait Goal Standby Assistance,Front Wheel Walker Gait Distance 150 feet Other Goals up/down 2 steps with rail and cane with CG assist Days to Meet Goals 3 Frequency of Treatment Frequency Of Treatment Twice a Day Treatment Plan Physical Therapy Treatment Plan Bed Mobility Training,Transfer Training,Gait Training, Therapeutic Exercise,Balance Retraining,Post Op Education, Discharge Planning,Hot or Cold Pack,Neuromuscular Re-ed Other Recommendations and Next Treatment continue to assess mobility as Focus her pain improves Weight Bearing Status Weight Bearing Status Weight Bear as Tolerated Allowed Weight Bearing Amount (enter % left knee s/p TKA or #) (%) Discharge Recommendations Other Discharge Recommendations continue to assess as her pain improves
--- NOTE | 2022-05-31 14:48 | PT.IPTN ---
Current Diagnoses Unilateral primary osteoarthritis, left knee (05/30/22) Surgery Performed Operation Date: 05/30/22 07:45 Actual Procedures p Total Knee Arthroplasty(Left) - Jean Carlos Hickey MD Physical Therapy Treatment Note M2 PT-IP Current Condition Start: 05/31/22 12:37 Freq: NEEDED Status: Active Protocol: Document 05/31/22 14:48 DLM (Rec: 05/31/22 15:03 DLM [id number]) Physical Therapy Current Condition Current Condition Evaluation Date 05/31/22 Treatment Diagnosis left TKA, impaired gait and mobility, knee pain Onset Date 05/30/22 M3 PT-IP Subjective Start: 05/31/22 12:37 Freq: NEEDED Status: Active Protocol: Document 05/31/22 14:48 DLM (Rec: 05/31/22 15:03 DLM [id number]) Subjective Physical Therapy Visit Type Type Treatment Note Visit Start Time 14:00 Visit Stop Time 14:48 Total Visit Minutes 48 Number of AUTOMOTIVE DIAGNO[employer]IC TECHNICIAN Visits 0 Physical Therapy Visit Comments Patient Comments She reports feeling better this afternoon She has a raised toilet seat with armrests to use at home. She has a walk-in shower at home. Patient Goals Discharge home Therapy Pain Assessment Pain When Pain Assessed During Mobility Pain Present Pain Present Pain Reported Location Left Knee Intensity 6 Scale Used Numeric (0 - 10) Description Aching,Tender,With Movement Pain Behaviors Facial Grimacing,Wincing Pain Management Techniques Apply Cold,Re-positioning, Timing of Activity with Medications M4 PT-IP Mobility and Gait Start: 05/31/22 12:37 Freq: NEEDED Status: Active Protocol: Document 05/31/22 14:48 DLM (Rec: 05/31/22 15:03 DLM [id number]) PT-Bed Mobility Assessment Supine to Sit Supine to Sit Minimal Assistance Sit to Supine Sit to Supine Minimal Assistance Scooting Scooting to Edge of Bed Independent PT-Transfer Assessment Sit to and From Stand Sit to and from Stand Standby Assistance,Use of Upper Extremities Equipment Transfer Assistive Device Gait Belt,Front Wheeled Walker Transfers Transfer Destination Chair Transfer Technique Stand Step Pivot Transfer Ability Level of Assist Standby Assistance,Use of Upper Extremities Comments Mobility Comments education provided for safe use of UE's during sit-stand Gait Assessment Gait Gait Assistance Required: Standby Assistance Distance (Feet) 75 Able to Maintain Weight Bearing Status Yes During Gait Assistive Devices Assistive Device Gait Belt,Front Wheeled Walker Gait Deviations General Gait Pattern Antalgic,Flexed Trunk Factors Limiting Gait Function Factors Limiting Gait Function Decreased Activity Tolerance, Decreased Strength,Limited Range of Motion,Pain Comments Gait Comments she continues to report increased pain with weight bearing on left LE during gait , she demonstrates good use of UE support on the FWW to compensate, verbal cues for gait sequence to increase safety during gait Stair Climbing Assessment Evaluation Level of Assist On Stairs Contact Guard Assistance Devices Stair Climbing Assistive Devices Straight Cane,Left Railing Technique/Endurance Stair Climbing Direction Ascend and Descend Stair Climbing Technique Step to Step Number of Steps Climbed 3 Stair Climbing Set # Repetitions (reps) 1 PT-Balance Assessment Sitting Balance and Reactions Static Sitting Balance Ability Normal Dynamic Sitting Balance Ability Normal Standing Balance and Reactions Static Standing Balance Ability Good Dynamic Standing Balance Ability Fair Device Used FWW M5 PT-IP Objective Assessments Start: 05/31/22 12:37 Freq: NEEDED Status: Active Protocol: Document 05/31/22 11:10 DLM (Rec: 05/31/22 12:51 DLM [id number]) Orientation Orientation/Cognition Level of Alertness Alert Orientation Name,Age,Birthday,Month,Date, Year,Day of Week,Place, Situation Language Function Ability No Deficits Noted Safety Awareness Understands Safety Issues Memory Description No Deficits Noted Gross Range of Motion Upper Extremity ROM Assessment Within Functional Limits Lower Extremity ROM Assessment Left Impaired Strength Upper Extremity Strength Assessment Within Functional Limits Lower Extremity Strength Assessment Left Impaired Hip can not lift off of bed with severe knee pain Knee pain with quad set, can not do short arc quad due to pain Ankle moving actively but reports calf soreness Coordination Assessment Gross Coordination Gross Coordination WNL Sensation Assessment Sensation Gross Sensation WNL Comments Sensation Comments no numbness reported in left LE post-op Muscle Tone Muscle Tone WNL Yes M6 PT-IP Treatment Start: 05/31/22 12:37 Freq: NEEDED Status: Active Protocol: Document 05/31/22 14:48 DLM (Rec: 05/31/22 15:03 DLM [id number]) Physical Therapy Treatment Exercises Exercises Ankle Pumps,Seated Knee Flexion/Extension Knee ROM Measurement 10-70 degrees AROM Education Education Provided Weight Bearing Status,Post-Op Packet,Safety Other Treatments Other Treatment Performed Her is present this visit and participates in therapy session. He is able to assist her for home. M7 PT-IP Assessment and Plan Start: 05/31/22 12:37 Freq: NEEDED Status: Active Protocol: Document 05/31/22 14:48 DLM (Rec: 05/31/22 15:03 DLM [id number]) PT Summary Assessment and Plan Summary Impairments Pain,ROM,Strength,Balance,Bed Mobility,Transfers,Gait, Activity Tolerance Progress Towards Goals Progressing Toward Goals,Safe For Discharge Assessment Summary Gretchen is alert and resting in bed. She reports improved pain control with change in her pain medication. She was able to tolerate gait with the FWW and stairs. Her distance of gait is still limited due to pain with weight bearing on left knee. She has a supportive who is prepared to help her at home and is present this visit. Pt appears safe to discharge home today. Notified her nurse. Goals Bed Mobility Goal Independent Transfer Goal Independent,Front Wheeled Walker Gait Goal Standby Assistance,Front Wheel Walker Gait Distance 150 feet Other Goals up/down 2 steps with rail and cane with CG assist Days to Meet Goals 3 Frequency of Treatment Frequency Of Treatment Twice a Day Treatment Plan Physical Therapy Treatment Plan Bed Mobility Training,Transfer Training,Gait Training, Therapeutic Exercise,Balance Retraining,Post Op Education, Discharge Planning,Hot or Cold Pack,Neuromuscular Re-ed Weight Bearing Status Weight Bearing Status Weight Bear as Tolerated Allowed Weight Bearing Amount (enter % left knee s/p TKA or #) (%) Recommendations To Nursing Amount of Assist Needed 1 Person Assist Discharge Recommendations PT Discharge Recommendations Home with Assistance, Outpatient PT Other Discharge Recommendations her Spouse can assist her at home Transportation Needs at Discharge Private Vehicle
== END 2022-05-31 16:00 | disposition home or self-care (01) ==
LOC: OR 06:24 → AC 06:26
PROVIDERS: Physician Assistant; Referring Provider Orthopaedic Surgery; Visit Provider Orthopaedic Surgery
PROC: 0SRD0JZ Replacement of Left Knee Joint with Synthetic Substitute, Open Approach (ICD-10-PCS; CPT 27447; principal; 2022-05-30 07:45)
DX: M17.12 Unilateral primary osteoarthritis, left knee (principal); Z20.822 Contact with and (suspected) exposure to COVID-19
CPT/HCPCS: 27447; 36415; 73560; 85014; 85018; 87635; 97116; 97162; 97530; C1776; C9803; C9290; J0171; J0690; J1100; J1170; J2060; J2250; J2270; J2405; J2704; J3010